=== PATIENT | female | born 1980 | race Caucasian/White ===

== ENCOUNTER 2022-05-04 17:29 | Emergency (ER) | payer BC, SELFPAY ==
--- NOTE | ~2022-05-04 | XR_ITS ---
XR ankle RT 2V DATE: 05/04/2022 18:34 INDICATION: Right ankle pain. Kicked by horse. TECHNIQUE: 2 views COMPARISON: None FINDINGS: No fracture or dislocation of the ankle or disruption of the ankle mortise is detected. IMPRESSION: Negative Reviewed, dictated and finalized at location A. IMPRESSION: Negative
--- NOTE | ~2022-05-04 | XR_ITS ---
XR knee RT 2V DATE: 05/04/2022 18:34 INDICATION: Kicked by horse TECHNIQUE: AP and crosstable lateral views of right knee COMPARISON: None FINDINGS: There is a virtually nondisplaced fracture at the junction of the neck and proximal shaft o f the fibula. There is suggestion of a linear nondisplaced fracture of the medial femoral condyle as well. There is prominent distention of the suprapatellar bursa with fat/fluid level consistent with with li pohemarthrosis, consistent with intra-articular fracture. IMPRESSION: Nondisplaced medial femoral condylar fracture and fracture at junction of the fibular nec k and shaft Lipohemarthrosis Reviewed, dictated and finalized at location A. IMPRESSION: Nondisplaced medial femoral condylar fracture and fracture at junct ion of the fibular neck and shaft Lipohemarthrosis
[2022-05-04 17:58] VITALS: BP 125/82; PULSE 66; RESP 16; TEMP 36.7; O2SAT 99
[2022-05-04] MEDS: HYDROcodone/acetaminophen (*CRX) 5-325 MG TABLET 2 TAB PO (20:41)
--- NOTE | 2022-05-04 20:41 | ED.GENADULT ---
HPI - General Adult General Chief complaint: Extremity Injury, Lower Stated complaint: leg kicked by horse Time Seen by Provider: 05/04/22 19:51 History of Present Illness HPI narrative: This is a 41-year-old female who works as a [employer]. At 4:30 p.m. today she was kicked by a horse in the lateral portion of her right knee. she does not believe it was dislocated. Patient has been nonweightbearing since then. She denies numbness to her lower extremity. She has no weakness in the ankle. Related Data Allergies Allergy/AdvReac Type Severity Reaction Status Date / Time NSAIDS (Non-Steroidal AdvReac Other Verified 05/04/22 20:02 Anti-Inflamma Review of Systems Review of Systems: CONSTITUTIONAL: Denies night sweats. EYES: No eye pain ENT: Denies rhinorrhea CARDIOVASCULAR: Denies palpitations RESPIRATORY: Denies hemoptysis GASTROINTESTINAL: Denies hematemesis GENITOURINARY: Denies hematuria. SKIN: Denies rash MUSCULOSKELETAL: Denies myalgia. NEUROLOGIC: Denies weakness. PSYCHIATRIC: Denies delusions Exam Narrative: APPEARANCE: No apparent distress. Head atraumatic. EYES: PERRLA/EOMI, NOSE: Normal no drainage NECK: Supple, Trachea midline RESPIRATORY: CTAB, No increased work of breathing. CARDIOVASCULAR: S1S2 appreciated , pulses are +2 in the PT and DP distribution ABDOMINAL: Soft, nontender, nondistended, MUSCULOSKELETAl: Tenderness palpation over the fibular head and on the medial knee. NEURO: Patient has sensation to light touch intact over entire lower extremity. Stregnth is intact and flexion and dorsiflexion of the ankle. SKIN:: Warm, dry. Normal color PSYCHIATRIC: Normal affect Course Vital Signs Vital signs: Vital Signs Temperature 98.1 F 05/04/22 17:58 Pulse Rate 66 05/04/22 17:58 Respiratory Rate 16 05/04/22 17:58 Blood Pressure 125/82 05/04/22 17:58 Pulse Oximetry 99 05/04/22 17:58 Temperature 98.1 F 05/04/22 17:58 Pulse Rate 66 05/04/22 17:58 Respiratory Rate 16 05/04/22 17:58 Blood Pressure 125/82 05/04/22 17:58 Pulse Oximetry 99 05/04/22 17:58 Medical Decision Making [facility] Narrative Medical decision making narrative: This is a 41-year-old female presenting ED after being kicked in the knee by a horse. X-rays were obtained which showed a fracture at the junction of the fibular head and neck as well as a nondisplaced fracture medial femoral condyle. Case was discussed with the orthopedic surgeon on-call Dr. Hu. The patient will be placed in a knee immobilizer and given crutches. She can call Dr. Hu's office in the morning to make an appointment.She has been given Azle for pain control. Vital Signs Vital Signs: Vital Signs Temperature 98.1 F 05/04/22 17:58 Pulse Rate 66 05/04/22 17:58 Respiratory Rate 16 05/04/22 17:58 Blood Pressure 125/82 05/04/22 17:58 Pulse Oximetry 99 05/04/22 17:58 Temperature 98.1 F 05/04/22 17:58 Pulse Rate 66 05/04/22 17:58 Respiratory Rate 16 05/04/22 17:58 Blood Pressure 125/82 05/04/22 17:58 Pulse Oximetry 99 05/04/22 17:58 Discharge Plan Discharge Clinical Impression: Broken femur, Broken fibula Patient Disposition: Home, Self-Care Condition: Stable Instructions: Antibiotic Form, Leg Fracture (ED) Additional Instructions: Please use the knee immobilizer and crutches. Please use Azle for pain control. Please call Dr. Hu's office in the morning to make an appointment. Please return emergency department if you develop severe pain of the lower extremity, the extremity becomes cold to touch, or you lose feeling in your leg. Prescriptions: New hydrocodone-acetaminophen 5-325 mg tablet 1 tablet PO Q4H PRN (Reason: pain) Qty: 20 0RF Follow-up/Referrals: PHYSICIAN,PODIATRIST [Primary Care Provider] -
== END 2022-05-04 21:17 | disposition home or self-care (01) ==
PROVIDERS: Emergency Provider Emergency Medicine
DX: S72.434A Nondisplaced fracture of medial condyle of right femur, initial encounter for closed fracture (principal); S82.831A Other fracture of upper and lower end of right fibula, initial encounter for closed fracture; W55.12XA Struck by horse, initial encounter
CPT/HCPCS: 73560; 73600; 99284; A9270

== ENCOUNTER → 2022-05-05 12:23 | Outpatient (CLI) | payer BC, SELFPAY ==
--- NOTE | ~2022-05-05 | MR_ITS ---
EXAMINATION: MR knee RT wo con DATE: 05/05/2022 13:31 INDICATION: Right knee injury. TECHNIQUE: Magnetic resonance imaging (MRI) of the right knee was performed without intravenous contr ast. Sequences included axial PD-weighted FS FSE, coronal PD-weighted FSE and PD-weighted FS FSE, sag ittal PD-weighted FSE, and sagittal T2-weighted FS FSE. COMPARISON: Right knee radiographs 05/04/2022 FINDINGS: Medial compartment: Medial meniscus is normal. Medial compartment cartilage is normal. Lateral compartment: Lateral meniscus is normal. Lateral compartment cartilage is normal. Patellofemoral compartment: There is cartilage fissuring of patellar lateral facet. There is shallow partial-thickness cartilage loss of trochlea. Ligaments and tendons: The anterior and posterior cruciate ligaments are normal. Medial collateral ligament is intact. There are changes of prior sprain of fibular collateral ligament characterized by thickening and increased signal intensity proximally. There is mild patellar tendinopathy. Fluid: There is a large knee joint lipohemarthrosis. There is intermuscular edema in the calf. There is subc utaneous edema in the medial knee and lateral calf. Osseous/other: There is a comminuted fracture of distal femur consisting of a transverse fracture component at the m edial femoral metaphysis and an oblique sagittal fracture component extending to the notch and to the lateral femoral metadiaphysis. There is edema-like marrow signal intensity in medial aspect of media l femoral condyle, consistent with contusion. There is an oblique fracture of neck of proximal fibula . The distal fracture fragment demonstrates 2 mm medial displacement. IMPRESSION: 1. Nondisplaced comminuted fracture of distal femur. 2. Oblique fracture of fibular neck. 3. Mild patellofemoral compartment chondrosis. 4. Large knee lipohemarthrosis. Reviewed, dictated and finalized at location A.
== END ==
PROVIDERS: PCP Orthopaedic Surgery; Visit Provider Orthopaedic Surgery
DX: S72.491A Other fracture of lower end of right femur, initial encounter for closed fracture (principal); X58.XXXA Exposure to other specified factors, initial encounter
CPT/HCPCS: 73721